=== PATIENT | male | born 1990 | race Caucasian/White ===

== ENCOUNTER 2018-11-08 18:29 | Emergency (ER) | payer BC, MEDICAID ==
[2018-11-08 18:41] VITALS: BP 140/67
[2018-11-08] MEDS ORDERED: predniSONE 20 MG Tab PO ONE (19:02)
[2018-11-08] MEDS ORDERED: valACYclovir 1,000 MG Tab PO STA (19:02)
--- NOTE | 2018-11-08 19:09 | EDM.PDOC ---
ED HPI GENERAL MEDICAL PROBLEM - General Chief Complaint: Neurological Problem Stated Complaint: FACE IS NUMB Time Seen by Provider: 11/08/18 18:55 Source of Information: Reports: Patient, Old Records, RN History Limitations: Reports: No Limitations - History of Present Illness INITIAL COMMENTS - FREE TEXT/NARRATIVE: 28 yo male here with progressive R facial droop x 2 days. Has not been to the clinic. Can still close the right eye. Some drooling from the R side of his mouth. Onset: Gradual Onset Date: 11/06/18 Duration: Day(s): (2) Location: Reports: Face (R side) Quality: Reports: Other (slight numbness) Severity: Moderate Improves with: Reports: None Worsens with: Reports: Other (? 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) (none) - Related Data Allergies Allergy/AdvReac Type Severity Reaction Status Date / Time Penicillins Allergy Airway Verified 11/08/18 18:42 Tightness Home Meds: Home Meds predniSONE [Prednisone] 20 mg PO TID #20 tablet 11/08/18 [Rx] valACYclovir HCl [Valacyclovir] 1,000 mg PO Q8H #20 tablet 11/08/18 [Rx] Past Medical History HEENT History: Reports: Other (See Below) Other HEENT History: Wears glasses or contacts Neurological History: Reports: Migraines Psychiatric History: Reports: Anxiety Social & Family History - Tobacco Use Smoking Status *Q: Current Some Day Smoker Years of Tobacco use: 12 Packs/Tins Daily: 0.2 - Caffeine Use Caffeine Use: Reports: Soda - Recreational Drug Use Recreational Drug Use: No - Living Situation & Occupation 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 Denies: Confusion, Dizziness, Headache, Seizure, Trouble Speaking, Difficulty Walking, Gait Disturbance Psychiatric: Reports: No Symptoms ED EXAM, NEURO - Physical Exam Exam: See Below Exam Limited By: No Limitations General Appearance: Alert, WD/WN, No Apparent Distress Eye Exam: Bilateral Eye: Normal Inspection Ears: Normal External Exam, Normal Canal, Hearing Grossly Normal, Normal TMs Nose: Normal Inspection, Normal Mucosa, No Blood Throat/Mouth: Normal Inspection, Normal Lips, Normal Oropharynx, Normal Voice, No Airway Compromise Head Exam: Atraumatic, Normocephalic Neck: Normal Inspection, Supple, Non-Tender Respiratory/Chest: No Respiratory Distress, Lungs Clear, Normal Breath Sounds, No Accessory Muscle Use Cardiovascular: Regular Rate, Rhythm, No Edema GI/Abdominal: Normal Bowel Sounds, Soft, Non-Tender Neurological: Alert, Normal Mood/Affect, Normal Dorsiflexion, Normal Plantar Flexion, Oriented x 3, Other (some weakness of eye lids on R, Some visible R sided facial droop. Smile not symmetrical. ) Back Exam: Normal Inspection Extremities: Normal Inspection, Normal Range of Motion, Non-Tender, No Pedal Edema Psychiatric: Normal Affect, Normal Mood Skin Exam: Warm, Dry, Intact, Normal Color, No Rash Course - Vital Signs Last Recorded V/S: Last Vital Signs Temp 36.5 C 11/08/18 18:43 Pulse 61 11/08/18 18:43 Resp 16 11/08/18 18:43 BP 140/67 11/08/18 18:43 Pulse Ox 97 11/08/18 18:43 - Orders/Labs/Meds Orders: Active Orders 24 hr Category Date Time Status LYME (B. BURGDORFERI) PCR Routine Lab 11/08/18 19:01 Ordered Meds: Medications Discontinued Medications Generic Name Dose Route Start Last Admin Trade Name Armondq PRN Reason Stop Dose Admin Prednisone 60 mg 11/08/18 19:02 Prednisone PO 11/08/18 19:03 ONETIME ONE Valacyclovir HCl 1,000 mg 11/08/18 19:02 Valtrex PO 11/08/18 19:03 NOW STA Departure - Departure Time of Disposition: 19:20 Disposition: Home, Self-Care 01 Condition: Fair Clinical Impression: Lira's palsy - Discharge Information *PRESCRIPTION DRUG MONITORING PROGRAM REVIEWED*: No *COPY OF PRESCRIPTION DRUG MONITORING REPORT IN PATIENT BRIAN: No Prescriptions: predniSONE [Prednisone] 20 mg PO TID #20 tablet valACYclovir HCl [Valacyclovir] 1,000 mg PO Q8H #20 tablet Referrals: PCP,None [Primary Care Provider] - Additional Instructions: Take valacyclovir every 8 hrs. Take prednisone three times a day starting your prescription tomorrow morning. Recheck in the clinic on Sunday to monitor your Lira's Palsy and to follow up on your Lymes Test. If you cannot fully close your R eye you will need to apply moisturizing eye drops as needed, these are available over the counter at [facility]. At night or with naps you should tape your eye shut if it does not fully close to prevent drying. - My Orders Last 24 Hours: My Active Orders 11/08/18 19:01 LYME (B. BURGDORFERI) PCR Routine - Assessment/Plan Last 24 Hours: My Active Orders 11/08/18 19:01 LYME (B. BURGDORFERI) PCR Routine
== END 2018-11-08 19:30 | disposition home or self-care (01) ==
LOC: JP.ED 18:29
DX: G51.0 Bell's palsy (principal); F17.210 Nicotine dependence, cigarettes, uncomplicated; Z88.0 Allergy status to penicillin
CPT/HCPCS: 99284

== ENCOUNTER 2019-10-07 22:18 | Emergency (ER) | payer BC, MEDICAID ==
--- NOTE | 2019-10-07 22:32 | EDM.PDOC ---
ED HPI GENERAL MEDICAL PROBLEM - General Chief Complaint: ENT Problem Stated Complaint: TOOTH Time Seen by Provider: 10/07/19 22:32 Source of Information: Reports: Patient History Limitations: Reports: No Limitations - History of Present Illness INITIAL COMMENTS - FREE TEXT/NARRATIVE: 29 years old male patient presented with a chief complaint of right lower toothache. Has been going on for 3 weeks. Worse tonight. Was seen by a dentist yesterday and he told him he needed tooth extraction. Complaining of worsening pain. No facial swelling. No discharge. No fever. Otherwise doing well denies any chest pain shortness breath. Denies any cough or fever. 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 Pain Score (Numeric/FACES): 10 - Related Data Allergies Allergy/AdvReac Type Severity Reaction Status Date / Time Penicillins Allergy Airway Verified 11/08/18 18:42 Tightness Home Meds: Home Meds predniSONE [Prednisone] 20 mg PO TID #20 tablet 11/08/18 [Rx] valACYclovir HCl [Valacyclovir] 1,000 mg PO Q8H #20 tablet 11/08/18 [Rx] Past Medical History HEENT History: Reports: Other (See Below) Other HEENT History: Wears glasses or contacts Neurological History: Reports: Migraines Psychiatric History: Reports: Anxiety Social & Family History - Caffeine Use Caffeine Use: Reports: Soda - Living Situation & Occupation 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 ED EXAM, ENT - Physical Exam Exam: See Below Exam Limited By: No Limitations General Appearance: Alert, WD/WN, No Apparent Distress Mouth/Throat: Other (Poor dentition. Dental caries. Mild gum erythema. No discharge. No swelling. No facial swelling.) Head: Atraumatic, Normocephalic Neck: Normal Inspection, Supple, Non-Tender, Full Range of Motion Respiratory/Chest: No Respiratory Distress, Lungs Clear, Normal Breath Sounds, No Accessory Muscle Use, Chest Non-Tender Cardiovascular: Normal Peripheral Pulses, Regular Rate, Rhythm, No Edema, No Gallop, No JVD, No Murmur, No Rub (Male) Exam: No Hernia, Normal Inspection, Normal Prostate, Circumcised Extremities: Normal Inspection, Normal Range of Motion, Non-Tender, No Pedal Edema, Normal Capillary Refill Neurological: Alert, Oriented, CN II-XII Intact, Normal Cognition, Normal Gait, Normal Reflexes, No Motor/Sensory Deficits Course - Vital Signs Last Recorded V/S: Last Vital Signs Temp 36.0 C 10/07/19 22:32 Pulse 56 L 10/07/19 22:32 Resp 16 10/07/19 22:32 BP 117/49 L 10/07/19 22:32 Pulse Ox 97 10/07/19 22:32 - Re-Assessments/Exams Free Text/Narrative Re-Assessment/Exam: 10/07/19 22:47 Patient was seen and examined shortly after arrival. Stable. He took 3000 mg of ibuprofen today. I did advise him to alternate Tylenol and ibuprofen for pain. Maximum dose of daily Tylenol is for gram a day including [place]. Also gargle with salt and water. Use Orajel. [place] for severe pain. Do not drive oral. Machines when taken [place]. Close follow-up with your dentist. Come back for any concern or any worsening symptom. Patient agrees with the plan. Stable for discharge. Departure - Departure Time of Disposition: 22:49 Disposition: Home, Self-Care 01 Condition: Good Clinical Impression: Toothache, Dental caries extending into dentin, Dental caries - Discharge Information Referrals: PCP,None [Primary Care Provider] - Forms: ED Department Discharge Additional Instructions: I did advise him to alternate Tylenol and ibuprofen for pain. Maximum dose of daily Tylenol is for gram a day including [place]. Also gargle with salt and water. Use Orajel. [place] for severe pain. Do not drive oral. Machines when taken [place]. Close follow-up with your dentist. Come back for any concern or any worsening symptom Sepsis Event Note - Focused Exam Vital Signs: Vital Signs Temp Pulse Resp BP Pulse Ox 10/07/19 22:32 36.0 C 56 L 16 117/49 L 97 Date Exam was Performed: 10/07/19 Time Exam was Performed: 22:45 - Assessment/Plan Plan: I did advise him to alternate Tylenol and ibuprofen for pain. Maximum dose of daily Tylenol is for gram a day including [place]. Also gargle with salt and water. Use Orajel. [place] for severe pain. Do not drive oral. Machines when taken [place]. Close follow-up with your dentist. Come back for any concern or any worsening symptom
[2019-10-07 22:48] VITALS: BP 120/60; PULSE 72
== END 2019-10-07 23:03 | disposition home or self-care (01) ==
LOC: JP.ED 22:18
DX: K02.9 Dental caries, unspecified (principal); Z88.0 Allergy status to penicillin; Z79.899 Other long term (current) drug therapy
CPT/HCPCS: 99282

== ENCOUNTER 2019-11-08 16:11 | Emergency (ER) | payer BC, MEDICAID ==
[2019-11-08 16:49] VITALS: BP 106/60; PULSE 50
[2019-11-08] MEDS ORDERED: Cyclobenzaprine 10 MG Tab PO ONE (16:54)
[2019-11-08] MEDS ORDERED: Ketorolac 60 MG/2 ML SDV IM ONE (16:54)
--- NOTE | 2019-11-08 16:56 | EDM.PDOC ---
ED HPI GENERAL MEDICAL PROBLEM - General Chief Complaint: Back Pain or Injury Stated Complaint: LOWER BACK PAIN Time Seen by Provider: 11/08/19 16:52 Source of Information: Reports: Patient, RN Notes Reviewed History Limitations: Reports: No Limitations - History of Present Illness INITIAL COMMENTS - FREE TEXT/NARRATIVE: 29-year-old gentleman presents emergency department with a complaint of low back pain, he injured himself during a coughing fit, he also has influenza which may have triggered the coughing fit no loss of bowel or bladder is able to ambulate back Pain Score (Numeric/FACES): 4 - Related Data Allergies Allergy/AdvReac Type Severity Reaction Status Date / Time Penicillins Allergy Airway Verified 10/07/19 22:46 Tightness Past Medical History HEENT History: Reports: Other (See Below) Other HEENT History: Wears glasses or contacts Respiratory History: Reports: Other (See Below) Other Respiratory History: influenza 2019 Musculoskeletal History: Reports: Other (See Below) Other Musculoskeletal History: once in a while will throw back out if he twist wrong. 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 No: CVA Tenderness (R), CVA Tenderness (L), Vertebral Tenderness Neurological: No: Straight Leg Raise (L), Straight Leg Raise (R) Course - Vital Signs Last Recorded V/S: Last Vital Signs Temp 98.0 F 11/08/19 16:47 Pulse 50 L 11/08/19 16:47 Resp 16 11/08/19 16:47 BP 106/60 11/08/19 16:47 Pulse Ox 97 11/08/19 16:28 - Orders/Labs/Meds Meds: Medications Discontinued Medications Generic Name Dose Route Start Last Admin Trade Name Catalino PRN Reason Stop Dose Admin Cyclobenzaprine HCl 10 mg 11/08/19 16:54 11/08/19 17:04 Flexeril PO 11/08/19 16:55 10 mg ONETIME ONE Administration Ketorolac Tromethamine 60 mg 11/08/19 16:54 11/08/19 17:04 Toradol IM 11/08/19 16:55 60 mg ONETIME ONE Administration Departure - Departure Time of Disposition: 17:44 Disposition: Home, Self-Care 01 Condition: Fair Clinical Impression: Low back pain Qualifiers: Chronicity: acute Back pain laterality: bilateral Sciatica presence: without sciatica Qualified Code(s): M54.5 - Low back pain - Discharge Information Instructions: Back Exercises, [id number], Acute Back Pain, Adult Referrals: PCP,None [Primary Care Provider] - Forms: ED Department Discharge Additional Instructions: Use Tylenol and Motrin as needed for pain control, try the back exercises, please followup with your primary care provider in 3-5 days if not better, please call return to the emergency department with worsening of symptoms. Sepsis Event Note - Evaluation Sepsis Screening Result: No Definite Risk - Focused Exam Vital Signs: Vital Signs Temp Pulse Resp BP Pulse Ox 11/08/19 16:47 98.0 F 50 L 16 106/60 11/08/19 16:28 95.9 F L 55 L 16 106/69 97 Date Exam was Performed: 11/08/19 Time Exam was Performed: 17:44 - Assessment/Plan Plan: Assessment Acuity = acute Site and laterality = low back pain Etiology = secondary to twisting injury Manifestations = none Location of injury = Home Lab values = none Plan Good relief with combination Toradol and Flexeril plans discharge home he will use Tylenol or ibuprofen as needed follow-up primary care 3 to 5 days as needed This note was dictated using [employer] recognition software please call with any questions on syntax or grammar.
== END 2019-11-08 17:55 | disposition home or self-care (01) ==
LOC: JP.ED 16:11
DX: M54.5 Low back pain (principal); Z88.0 Allergy status to penicillin; Z87.891 Personal history of nicotine dependence
CPT/HCPCS: 96372; 99283; A9270; J1885

== ENCOUNTER 2022-08-25 02:26 | Emergency (ER) | payer BC, MEDICAID ==
[2022-08-25] MEDS ORDERED: Ketorolac 30 MG/ML SDV IM ONE (02:49)
[2022-08-25 02:54] VITALS: BP 122/72; PULSE 69
== END 2022-08-25 03:36 | disposition home or self-care (01) ==
LOC: JP.ED 02:26
DX: M94.0 Chondrocostal junction syndrome [Tietze] (principal); Z88.0 Allergy status to penicillin
CPT/HCPCS: 96372; 99283; J1885

== ENCOUNTER 2022-10-14 05:42 | Emergency (ER) | payer BC, MEDICAID ==
[2022-10-14 05:59] VITALS: BP 129/74; PULSE 57
== END 2022-10-14 06:38 | disposition home or self-care (01) ==
LOC: JP.ED 05:42
DX: K60.2 Anal fissure, unspecified (principal); F17.210 Nicotine dependence, cigarettes, uncomplicated; Z88.0 Allergy status to penicillin; Z86.16 Personal history of COVID-19
CPT/HCPCS: 99283